=== PATIENT | female | born 1970 | race Caucasian/White ===

== ENCOUNTER 2016-09-14 10:13 | Emergency (ER) | payer SELFPAY ==
[~2016-09-14] VITALS: Ht 160 cm; Wt 78.5 kg
[2016-09-14 13:54] LABS: MCHC 28.1 G/DL (30.0-36.0); MCV 67.5 FL (83-99); MEAN PLAT.VOLUME 9.3 uM^3 (9.5-12.4); PLATELET COUNT 405 K/uL (156-360); RBC DIS.WIDTH-CV 17.8 % (11.8-14.6); RBC DIS.WIDTH-SD 42.8 % (39-53); WHITE BLOOD COUNT 7.2 K/uL (4.1-10.2)
[2016-09-14 14:03] LABS: CHLORIDE 104 mEq/L (99-109); SODIUM 136 mEq/L (136-147)
[2016-09-14 14:05] LABS: GLUCOSE 104 mg/dL (70-99)
[2016-09-14 14:07] LABS: ANION GAP 9 MEQ/L (2-14)
[2016-09-14 14:09] LABS: GFR ESTIMATE (CALCULATED) > 59 mL/min/
[2016-09-14 14:10] LABS: UREA NITROGEN (BUN) 9 mg/dL (9-23)
[2016-09-14 14:17] LABS: QUANTITATIVE HCG < 4.0 MIU/ML
[2016-09-14 14:34] LABS: INTER. NORMALIZED RATIO 1.1; PROTHROMBIN TIME 10.7 (9.2-11.2); PTT 22.8 (25-32)
[2016-09-14 14:41] LABS: TOTAL BILIRUBIN 0.3 mg/dL (0.0-1.0)
[2016-09-14 14:42] LABS: ALKALINE PHOSPHATASE 93 IU/L (3-129)
[2016-09-14 14:44] LABS: DIRECT BILIRUBIN 0.1 mg/dL (0.0-0.3)
[2016-09-14] MEDS ORDERED: SLOW RELEASE I160 MG PO (17:49)
[2016-09-14 18:05] VITALS: BP 123/78
== END 2016-09-14 18:06 | disposition home or self-care (01) ==
LOC: EME 10:13 → RME 10:13
PROVIDERS: Nurse Practitioner Family
DX: I80.01 Phlebitis and thrombophlebitis of superficial vessels of right lower extremity (principal); D50.9 Iron deficiency anemia, unspecified
CPT/HCPCS: 80048; 80076; 84702; 84702 90; 85027; 85610; 85730; 93971; 99281; 99284